=== PATIENT | male | born 1945 | race Two or more races ===

== ENCOUNTER 2017-11-15 17:43 | Emergency (ER) | payer MEDICARE ==
[~2017-11-15] VITALS: Ht 160 cm; Wt 68.0 kg
--- NOTE | 2017-11-15 17:45 | NUR ---
BBRA FOR NEAR SYNCOPE AFTER VAPING MARIJUANA, NAD NOTED, VSS, RESP EVEN AND UNLABORED. PT PUT ON MONITOR, WAITING FOR MD MITCHELL.
[2017-11-15 18:27] LABS: BASOPHILS # (AUTO) 0.1 /CMM (0.0-0.2); BASOPHILS % (AUTO) 0.7 % (0.0-2.0); EOSINOPHILS # (AUTO) 0.6 /CMM (0.0-0.7); EOSINOPHILS % (AUTO) 7.5 % (0.0-6.0); HEMATOCRIT 37 % (39-51); LYMPHOCYTES # (AUTO) 1.7 /CMM (0.8-4.8); LYMPHOCYTES % (AUTO) 21.4 % (20.0-44.0); MEAN CORPUSCULAR HEMOGLOBIN 32 PG (26.0-33.0); MEAN CORPUSCULAR HGB CONC 35 g/dl (31.0-36.0); MEAN CORPUSCULAR VOLUME 91 fL (80-96); MONOCYTES # (AUTO) 0.9 /CMM (0.1-1.30); NEUTROPHILS # (AUTO) 4.6 /CMM (1.8-8.9); NEUTROPHILS % (AUTO) 58.4 % (43.0-81.0); PLATELET COUNT (AUTO) 268 /CMM (150-450); RDW COEFFICIENT OF VARIATION 15.1 (11.5-15.0); RED BLOOD CELL COUNT(AUTO) 4.04 MIL/uL (4.5-6.0); WHITE BLOOD COUNT (AUTO) 7.9 K/uL (4.3-11.0)
[2017-11-15] MEDS ORDERED: IV NS 0.9% 1,000 ML BAG IV ONE (18:30)
[2017-11-15 18:44] LABS: CALCIUM, SERUM 8.5 mg/dL (8.5-10.1); CARBON DIOXIDE 34 mmol/L (21-32); CHLORIDE 100 mmol/L (98-107); CREATININE 1.4 mg/dL (0.6-1.3); GLUCOSE 99 mg/dL (74-106); POTASSIUM 4.3 mmol/L (3.5-5.1); SODIUM SERUM 135 mmol/L (136-145); UREA NITROGEN, BLOOD 23 mg/dL (7-18)
[2017-11-15 18:48] LABS: INR 0.99 (0.87-1.13)
[2017-11-15 18:50] LABS: ALANINE AMINOTRANSFERASE 16 U/L (12-78); ALBUMIN 3.4 g/dL (3.4-5.0); ALKALINE PHOSPHATASE 99 U/L (46-116); ASPARTATE AMINOTRANSFERASE 17 U/L (15-37); BILIRUBIN,DIRECT 0.1 mg/dL (0.0-0.2); BILIRUBIN,TOTAL 0.5 mg/dL (0.2-1.0); TOTAL PROTEIN, SERUM 7.1 g/dL (6.4-8.2)
[2017-11-15 18:51] LABS: ALCOHOL, BLOOD < 5 mg/dL (0-0)
[2017-11-15 19:36] LABS: THYROID STIMULATING HORMONE 0.863 uIU/mL (0.358-3.74)
[2017-11-15] MEDS ORDERED: LIDOCAINE 2% JEL UROJET 10 ML MM ONE (19:53)
--- NOTE | 2017-11-15 20:00 | NUR ---
UNABLE TO COLLECT URINE, SANTY MADE AWARE.
[2017-11-15 20:05] LABS: TROPONIN I < 0.017 ng/mL (0.00-0.056)
--- NOTE | 2017-11-15 20:37 | NUR ---
Patient is resting comfortably in bed with eyes closed. Easily aroused. VSS
[2017-11-15 23:08] VITALS: BP 117/75
--- NOTE | 2017-11-15 23:34 | NUR ---
Patient discharged to home in stable condition. Written and verbal after care instructions given. Patient verbalizes understanding of instruction.IV removed. Catheter intact and site benign. Pressure and 4x4 applied to site. No bleeding noted.
--- NOTE | 2017-11-15 23:34 | NUR ---
PT SENT TO LOBBY TO WAIT FOR HIS TRANSPORT.
== END 2017-11-15 23:36 | disposition home or self-care (01) ==
LOC: ER 17:44
DX: R55 Syncope and collapse (principal); F12.10 Cannabis abuse, uncomplicated
CPT/HCPCS: 36415; 70450; 71045; 80048; 80076; 82962; 84443; 84484; 85025; 85730; 93005; 96360; 99285; A4606; G0480; J3490; Z7610